=== PATIENT | male | born 1985 | race Caucasian/White ===

== ENCOUNTER 2022-01-25 10:43 | Emergency (ER) | payer OTHER ==
[~2022-01-25] VITALS: Ht 185.4 cm; Wt 124.7 kg
[2022-01-25 11:15] VITALS: BP 163/90
--- NOTE | 2022-01-25 11:22 | NUR ---
PT AMB TO BED 2.
[2022-01-25] MEDS ORDERED: DEXAMETHASONE 10 MG/ML VIAL IM ONE (11:35)
[2022-01-25] MEDS ORDERED: AMOX500C25 PO (11:36)
--- NOTE | 2022-01-25 11:54 | NUR ---
36/M PRESENTS TO ED WITH C/O SORE THROAT X2 DAYS, PATIENT DENIES FEVERS, CHILLS, COUGH. REPORTS PAIN WORSENS WHEN ATTEMPTING TO DRINK LIQUIDS. PATIENT STATES HE HAS BEEN TAKING ALEXIA SELTZER COLD AND HOT TEAS WITH NO RELIEF. DENIES SOB, CP, PATIENT SPEAKING IN FULL CLEAR SENTENCES.
--- NOTE | 2022-01-25 12:08 | NUR ---
Patient discharged with v/s stable. Written and verbal after care instructions ABOUT PHARYNGITIS given and explained. Patient alert, oriented and verbalized understanding of instructions. Ambulatory with steady gait. All questions addressed prior to discharge. ID band removed. Patient advised to follow up with PMD. Rx of AMOXICILLIN given. Patient educated on indication of medication including possible reaction and side effects. Opportunity to ask questions provided and answered.
== END 2022-01-25 12:08 | disposition home or self-care (01) ==
LOC: MED 10:43
DX: J02.9 Acute pharyngitis, unspecified (principal)
CPT/HCPCS: 96372; 99283; J1100